=== PATIENT | female | born 1930 | race Caucasian/White ===

== ENCOUNTER → 2016-11-04 | Outpatient (CLI) | payer MEDICARE, BC | LOC: SP 15:09 | PROVIDERS: ATTEND Family Medicine | DX: R60.9 Edema, unspecified (principal) | CPT/HCPCS: 93970 ==

== ENCOUNTER → 2016-11-19 | Outpatient (CLI) | payer MEDICARE, BC | LOC: LAB 10:37 | PROVIDERS: ATTEND Physician Assistant Medical | DX: I48.0 Paroxysmal atrial fibrillation (principal) | CPT/HCPCS: 36415; 85610 ==

== ENCOUNTER → 2016-11-26 | Outpatient (CLI) | payer MEDICARE, BC ==
[2016-11-26 09:53] LABS: PROTHROMBIN TIME 17.5 SEC (11.4-15.4)
== END ==
LOC: LAB 08:50
PROVIDERS: ATTEND Physician Assistant Medical
DX: I48.0 Paroxysmal atrial fibrillation (principal)
CPT/HCPCS: 36415; 85610

== ENCOUNTER → 2017-06-10 | Outpatient (CLI) | payer MEDICARE, BC ==
--- NOTE | 2017-06-10 12:42 | WOMENS IMAGING REPORT ---
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 TECHNIQUE: Dual-Energy X-ray Absorptiometry (DEXA) of the AP Spine and Hip. LIMITATIONS: None. FINDINGS: LUMBAR SPINE: The bone mineral density (BMD) measured from L1-L4 in the AP projection correlates with a T-score of -1.5, which is osteopenia as defined by the World Health Organization. HIP: The bone mineral density (BMD) measured in the left hip correlates with a T-score of -2.1 femoral nec k, which is osteopenia as defined by the World Health Organization. IMPRESSION: 1. LUMBAR SPINE: OSTEOPENIA. 2. HIP: OSTEOPENIA. COMMENT: The World Health Organization defines low BMD as follows: T-score: Normal: Greater than -1.0 Osteopenia: Between -1.0 and -2.5 Osteoporosis: Less than -2.5 without fractures Established osteoporosis: Less than -2.5 with fractures In general, you may wish to consider: Diagnosis Treatment Follow-up DEXA Normal BMD Prevention 2-3 years Osteopenia Prevention/Therapy 1-2 years Osteoporosis Therapy Yearly TECHNICAL DOCUMENTATION: JOB ID: [id number] [employer]- All Rights Reserved
== END ==
LOC: WI 09:49
PROVIDERS: ATTEND Family Medicine
DX: M81.0 Age-related osteoporosis without current pathological fracture (principal)
CPT/HCPCS: 77080

== ENCOUNTER → 2017-11-18 | Outpatient (CLI) | payer MEDICARE, BC ==
[2017-11-18 13:14] LABS: INTERNATIONAL RATION (INR) 1.49; PROTHROMBIN TIME 18.8 SEC (11.4-15.4)
== END ==
LOC: OD 12:26
PROVIDERS: ATTEND Physician Assistant Medical
DX: I48.0 Paroxysmal atrial fibrillation (principal)
CPT/HCPCS: 36415; 85610

== ENCOUNTER → 2018-07-18 | Outpatient (CLI) | payer MEDICARE, BC ==
--- NOTE | 2018-07-19 08:10 | XCELERA REPORT ---
[address] [address] Lower Extremity Arterial Evaluation Name: SHEILA TOWNSEND Age: 87 yrs Gender: Female : 1930 Patient Status: Outpatient Patient Location: Study Date: 07/18/2018 09:20 AM Procedure: A color flow and duplex scan of the lower extremity arteries was performed on the right with velocity and waveform anaylsis. Reason For Study: RLE PAIN Ordering Physician: АННА WORLEY Performed By: Francisco Javier Terrell Measurements and Calculations Right Left NATUROPATH PSV 110.0 cm/sec Prox PFA PSV -59.7 cm/sec Prox SFA PSV 88.6 cm/sec Mid SFA PSV -101.3 cm/sec Dist SFA PSV -95.0 cm/sec Prox Pop A PSV 72.2 cm/sec Dist ISAMAR PSV 72.2 cm/sec Mid SOUND RANGING CREWMEMBER PSV 98.7 cm/sec Eliot Pedis PSV -93.7 90.4 cm/sec Right Side Arterial Evaluation Normal velocity and triphasic waveforms noted from the Common Femoral artery to the infrageniculate vessels . Ankle Brachial index not obtained due to edema. Interpretation Summary No hemodynamically significant lesions in the right lower extremity only, on duplex imaging, at rest. : АННА WORLEY > Corby Qureshi
== END ==
LOC: SP 08:50
PROVIDERS: ATTEND Family Medicine
DX: M79.604 Pain in right leg (principal)
CPT/HCPCS: 93926

== ENCOUNTER 2018-07-26 08:27 | Day surgery (SDC) | payer MEDICARE, BC ==
[2018-07-19 09:37] LABS: HEMATOCRIT 36.9 % (36.0-47.0); HEMOGLOBIN 12.2 g/dL (12.0-15.5); MEAN CORPUSCULAR VOLUME 88 fl (80-97); PLATELET COUNT 232 10^3/uL (150-450); WHITE BLOOD COUNT 6.2 10^3/uL (4.0-10.5)
[2018-07-19 09:46] LABS: INTERNATIONAL RATION (INR) 1.46; PARTIAL THROMBOPLASTIN TIME 32.6 SEC (23.5-35.8); PROTHROMBIN TIME 18.5 SEC (11.4-15.4)
[2018-07-19 10:05] LABS: BLOOD UREA NITROGEN 19 mg/dL (7-20); CALCIUM 9.6 mg/dL (8.4-10.2); CARBON DIOXIDE 36 mmol/L (22-30); CHLORIDE 99 mmol/L (98-107); GLUCOSE 113 mg/dL (75-110); POTASSIUM 4.2 mmol/L (3.6-5.0); SODIUM 139.4 mmol/L (137-145)
[2018-07-19 10:21] LABS: ANION GAP 4 (5-19)
--- NOTE | 2018-07-19 17:58 | EKG REPORT ---
SEVERITY:- ABNORMAL ECG - ATRIAL FIBRILLATION, V-RATE 67-96 ANTERIOR INFARCT, AGE INDETERMINATE : Confirmed by: Marly Reyna 19-Jul-2018 17:58:21
[~2018-07-26 08:27] MED LIST: CEFAZOLIN 1 GM/D5W RTU 1 GM/50 ML RTUPB IV ONE; CEFAZOLIN 1 GM/D5W RTU 1 GM/50 ML RTUPB IV PRN; LACTATED RINGERS 1000 ML IV PRN; LIDOCAINE 0.5% INJ-PF (5 MG/ML) 50 ML SDV SUBCUT PRN
[2018-07-26] MEDS ORDERED: MIDAZOLAM 2 MG/2 ML INJ ONE (08:57)
[2018-07-26] MEDS ORDERED: FENTANYL CITRATE INJ/PF 100 MCG/2 ML AMPUL ONE ×2 (08:57→12:32)
[2018-07-26] MEDS ORDERED: PROPOFOL INJ 200 MG/20 ML VIAL IV ONE (08:58)
[2018-07-26] MEDS ORDERED: ACETAMINOPHEN 1,000 MG/100 ML RTUPB IV ONE (08:58)
[2018-07-26] MEDS ORDERED: LIDOCAINE 1%/EPINEPHRINE INJ 20 ML VIAL ONE (09:52)
[2018-07-26 09:57] LABS: INTERNATIONAL RATION (INR) 1.04; PROTHROMBIN TIME 14.2 SEC (11.4-15.4)
[2018-07-26 09:58] LABS: PARTIAL THROMBOPLASTIN TIME 30.1 SEC (23.5-35.8)
[2018-07-26] MEDS ORDERED: DIPHENHYDRAMINE HCL 50 MG/ML VIAL IV PRN (11:18)
[2018-07-26] MEDS ORDERED: MEPERIDINE HCL/PF INJ 25 MG/1 ML DISP.SYRIN IV PRN (11:18)
[2018-07-26] MEDS ORDERED: FENTANYL CITRATE INJ/PF 100 MCG/2 ML AMPUL IV PRN ×2 (11:18)
[2018-07-26] MEDS ORDERED: PROMETHAZINE HCL INJ 25 MG/1 ML VIAL IV PRN (11:18)
[2018-07-26] MEDS ORDERED: MORPHINE SULFATE 10 MG/ML INJ IV PRN (11:18)
[2018-07-26] MEDS ORDERED: OXYCODONE-ACETAMINOPHEN 5-325 MG TABLET PO PRN (12:15)
--- NOTE | 2018-07-26 12:15 | Discharge Summary ---
Discharge Summary (SDC) - Discharge Final Diagnosis: Sebaceous cyst of right buttock Date of Surgery: 07/26/18 Discharge Date: 07/26/18 Condition: Good Treatment or Instructions: WOUND CARE: 1) Avoid prolonged sitting. Do not shower for 48 hours. Remove outer dressing in 48 hours but leave steri strips (paper bandaids) in place until follow up. Once outer dressing is removed you may shower with warm water and soap, pat dry and re cover. Change dressing every three days. 2) Monitor wound for signs of infection: redness, swelling, increased pain, foul-smelling drainage. PAIN MANAGEMENT: 1) You may take Toradol 10mg one pill by mouth every six hours as needed for pain. FOLLOW UP: 1) You may follow up at [facility] in 7-10 days. Call clinic sooner with questions/concerns. Prescriptions: Ketorolac Tromethamine [Toradol 10 mg Tablet] 10 mg PO Q6HP PRN #20 tablet PRN Reason: Referrals: АННА WORLEY MD [Primary Care Provider] - Discharge Diet: As Tolerated Discharge Activity: No Lifting Over 10 Pounds, No Lifting/Push/Pulling, Walk Frequently Report the Following to Your Physician Immediately: Increase in Pain, Fever over 101 Degrees, Unusual Bleeding, Redness, Increased Soreness, Drainage-Foul Smelling
--- NOTE | 2018-07-26 12:18 | Operative Report ---
Operative Report DATE OF SURGERY: 07/26/18 PREOPERATIVE DIAGNOSIS: Large right buttock mass consistent with lipoma POSTOPERATIVE DIAGNOSIS: Pain with multiloculated, chronic sebaceous cyst of the right buttock OPERATION: Complete excision of right multiloculated sebaceous cyst, with drain closure SURGEON: DANIEL ACHARYA TIP CUTTER: HELDER PENA ANESTHESIA: LMAC TISSUE REMOVED OR ALTERED: Skin, subcutaneous tissue, sebaceous cyst, scar tissue COMPLICATIONS: None ESTIMATED BLOOD LOSS: 25 cc INTRAOPERATIVE FINDINGS: See below PROCEDURE: The patient was taken to the preop holding area after marking the right buttock to the main operating room where LMAC anesthesia was induced. She was placed in extreme left lateral decubitus position right buttock exposed, perineum clean, and isolated from the target tissue with iodoform dressing. The right buttock was then prepped and draped with Betadine Surgical plan surgical timeout were conducted. Skin was anesthetized with quarter percent Marcaine including subcutaneous tissues. A generous ellipse approximately 8 cm in length was then excised overlying the bruised portion of the greatest protrusion of tissue. The underlying pathology turned out to be a complex, chronic multiloculated sebaceous cyst. There was no evidence of pus, tumor, or bleeding. The entire cyst which was hard in areas was excised from the skin flaps, and the subcutaneous tissue. Inferiorly the complex extended to involve fibers of the gluteus idalia muscle. Vascular events were ligated as encountered with 2-0 Vicryl suture. The superficial gluteus muscle was excised with electrocautery. All elements of the cyst cavity were excised. Specimens were sent to pathology. We now evaluated the cavity. It was irrigated with a liter of saline. Redundant operative skin edges were excised with #10 blade. Wound closed in layers with 3-0 Vicryl 4-0 Vicryl 4-0 Ethilon interrupted sutures, benzoin and Steri-Strips. Prior to closure, a large Eric drain was placed to the right lateral skin flap secured to the skin with 2-0 Prolene suture and hooked to a bulb dressing. Patient tolerated the procedure well, stable and brought to the recovery room in stable condition.
[2018-07-26] MEDS ORDERED: OXYCODONE-ACETAMINOPHEN 5-325 MG TABLET ONE (13:37)
[2018-07-26 15:09] VITALS: BP 125/73
== END 2018-07-26 14:35 | disposition home or self-care (01) ==
LOC: OROUT 08:27
PROVIDERS: ATTEND Surgery
DX: D17.1 Benign lipomatous neoplasm of skin and subcutaneous tissue of trunk (principal); Z79.01 Long term (current) use of anticoagulants; M81.0 Age-related osteoporosis without current pathological fracture; I48.91 Unspecified atrial fibrillation; I10 Essential (primary) hypertension; F03.90 Unspecified dementia, unspecified severity, without behavioral disturbance, psychotic disturbance, mood disturbance, and anxiety; I25.10 Atherosclerotic heart disease of native coronary artery without angina pectoris; M19.90 Unspecified osteoarthritis, unspecified site; I49.9 Cardiac arrhythmia, unspecified; Z79.899 Other long term (current) drug therapy
CPT/HCPCS: 93005; 36415 ×2; 84132; 85027; 85610 ×2; 85730 ×2; 80048; 88304 ×2; 93010; 21931; J0690; J3010; J3490; A9270; J2704; J0131; 300; J2250

== ENCOUNTER → 2018-08-11 | Outpatient (CLI) | payer MEDICARE, BC ==
--- NOTE | 2018-08-12 09:13 | RADIOLOGY REPORT (SQ) ---
EXAM DESCRIPTION: TIBIA FIBULA RIGHT COMPLETED DATE/TIME: 08/11/2018 5:07 pm REASON FOR STUDY: NON PRESSURE CHRONIC ULCER RIGHT CALF COMPARISON: None. NUMBER OF VIEWS: Two views right tibia and fibula, 4 images total. LIMITATIONS: None. FINDINGS: Osteopenic. Medial compartment knee DJD. No fracture or bone lesion. Soft tissue loss a long the medial distal calf. No underlying suspicious foreign body or bone destruction. OTHER: No other significant finding. IMPRESSION: No radiographic evidence of osteomyelitis. Osteopenia. B DJD. TECHNICAL DOCUMENTATION: JOB ID: [id number] Reading location - IP/workstation name: [email or web address]
== END ==
LOC: RAD 16:49
PROVIDERS: ATTEND Nurse Practitioner
DX: L97.222 Non-pressure chronic ulcer of left calf with fat layer exposed (principal); L97.212 Non-pressure chronic ulcer of right calf with fat layer exposed

== ENCOUNTER → 2018-08-24 | Outpatient (CLI) | payer MEDICARE, BC ==
[2018-08-24 11:04] LABS: ABSOLUTE LYMPHOCYTES (AUTO) 1.3 10^3/uL (0.5-4.7); ABSOLUTE MONOCYTES (AUTO) 0.5 10^3/uL (0.1-1.4); ABSOLUTE NEUT (AUTO) 4.9 10^3/uL (1.7-8.2); BASOPHILS % (AUTO) 0.6 % (0-2); EOSINOPHILS % (AUTO) 0.6 % (0-6); HEMATOCRIT 36.5 % (36.0-47.0); HEMOGLOBIN 11.9 g/dL (12.0-15.5); LYMPHOCYTES % (AUTO) 19.3 % (13-45); MEAN CORPUSCULAR HEMOGLOBIN 28.4 pg (27.0-33.4); MEAN CORPUSCULAR HGB CONC 32.7 g/dL (32.0-36.0); MEAN CORPUSCULAR VOLUME 87 fl (80-97); MONOCYTES % (AUTO) 7.7 % (3-13); PLATELET COUNT 272 10^3/uL (150-450); RED CELL DISTRIBUTION WIDTH 14.9 % (11.5-14.0); SEGMENTED NEUTROPHILS % (AUTO) 71.8 % (42-78); TOTAL CELLS COUNTED % (AUTO) 100 %; WHITE BLOOD COUNT 6.9 10^3/uL (4.0-10.5)
[2018-08-24 11:30] LABS: ALANINE AMINOTRANSFERASE 26 U/L (9-52); ALBUMIN 3.6 g/dL (3.5-5.0); ALKALINE PHOSPHATASE 80 U/L (38-126); ANION GAP 6 (5-19); ASPARTATE AMINO TRANSFERASE 23 U/L (14-36); BILIRUBIN,DIRECT 0.1 mg/dL (0.0-0.4); BILIRUBIN,TOTAL 0.9 mg/dL (0.2-1.3); BLOOD UREA NITROGEN 13 mg/dL (7-20); C-REACTIVE PROTEIN 6.6 mg/L (<10.0); CALCIUM 9.9 mg/dL (8.4-10.2); CARBON DIOXIDE 37 mmol/L (22-30); CHLORIDE 95 mmol/L (98-107); GLUCOSE 88 mg/dL (75-110); POTASSIUM 4.7 mmol/L (3.6-5.0); SODIUM 137.6 mmol/L (137-145); TOTAL PROTEIN 5.9 g/dL (6.3-8.2)
[2018-08-24 11:49] LABS: ERYTHROCYTE SEDIMENTATION RATE 16 mm/hr (0-30)
== END ==
LOC: WC 10:19
PROVIDERS: ATTEND Nurse Practitioner Family
DX: L97.222 Non-pressure chronic ulcer of left calf with fat layer exposed (principal)
CPT/HCPCS: 36415; 80053; 85025; 85652; 86140

== ENCOUNTER 2018-11-15 07:00 | Observation (INO) | payer MEDICARE, BC ==
[~2018-11-15 07:00] MED LIST changes: -CEFAZOLIN 1 GM/D5W RTU 1 GM/50 ML RTUPB IV PRN; -LACTATED RINGERS 1000 ML IV PRN; -LIDOCAINE 0.5% INJ-PF (5 MG/ML) 50 ML SDV SUBCUT PRN
[2018-11-15] MEDS ORDERED: HYDROMORPHONE HCL INJ/PF 2 MG/ML AMPULE ONE (07:06)
[2018-11-15] MEDS ORDERED: FENTANYL CITRATE INJ/PF 100 MCG/2 ML AMPUL ONE (07:07)
[2018-11-15] MEDS ORDERED: MIDAZOLAM 2 MG/2 ML INJ ONE (07:07)
[2018-11-15] MEDS ORDERED: PROPOFOL INJ 200 MG/20 ML VIAL IV ONE (07:07)
[2018-11-15] MEDS ORDERED: RINGERS SOLUTION,LACTATED 1,000 ML IV PRN (07:52)
[2018-11-15 08:12] LABS: HEMATOCRIT 36.7 % (36.0-47.0); MEAN CORPUSCULAR HEMOGLOBIN 28.5 pg (27.0-33.4); MEAN CORPUSCULAR HGB CONC 32.8 g/dL (32.0-36.0); MEAN CORPUSCULAR VOLUME 87 fl (80-97); PLATELET COUNT 202 10^3/uL (150-450); RED BLOOD COUNT 4.23 10^6/uL (3.72-5.28); RED CELL DISTRIBUTION WIDTH 15.4 % (11.5-14.0)
[2018-11-15 08:20] LABS: INTERNATIONAL RATION (INR) 1.24; PROTHROMBIN TIME 16.2 SEC (11.4-15.4)
[2018-11-15 08:21] LABS: PARTIAL THROMBOPLASTIN TIME 33.1 SEC (23.5-35.8)
--- NOTE | 2018-11-15 08:41 | RADIOLOGY REPORT (SQ) ---
EXAM DESCRIPTION: CHEST SINGLE VIEW COMPLETED DATE/TIME: 11/15/2018 7:54 am REASON FOR STUDY: preop COMPARISON: None. EXAM PARAMETERS: NUMBER OF VIEWS: One view. TECHNIQUE: Single frontal radiographic view of the chest acquired. RADIATION DOSE: NA LIMITATIONS: None. FINDINGS: LUNGS AND PLEURA: Emphysematous change. Low lung volumes with mild left lateral opacities at the lung base. No large effusion. No pneumothorax. MEDIASTINUM AND HILAR STRUCTURES: No masses. Contour normal. HEART AND VASCULAR STRUCTURES: Normal heart size. Aortic atherosclerosis. BONES: No acute findings. HARDWARE: None in the chest. OTHER: No other significant finding. IMPRESSION: Low lung volumes with linear left basilar opacities, likely atelectasis. TECHNICAL DOCUMENTATION: JOB ID: [id number] [employer]- All Rights Reserved Reading location - IP/workstation name: [email or web address]
[2018-11-15] MEDS ORDERED: BUPIVACAINE HCL 0.25 % INJ/PF (2.5 MG/1 ML) 30 ML VIAL ONE (08:55)
[2018-11-15] MEDS ORDERED: LIDOCAINE 0.5% INJ-PF (5 MG/ML) 50 ML SDV ONE (08:55)
[2018-11-15] MEDS ORDERED: ONDANSETRON HCL INJ/PF 4 MG/2 ML SDV ONE (09:33)
[2018-11-15] MEDS ORDERED: DEXAMETHASONE SOD PHOSPHATE INJ 4 MG/1 ML VIAL ONE (09:33)
[2018-11-15] MEDS ORDERED: DIPHENHYDRAMINE HCL 50 MG/ML VIAL IV PRN (09:41)
[2018-11-15] MEDS ORDERED: OXYCODONE-ACETAMINOPHEN 5-325 MG TABLET PO PRN (09:41)
[2018-11-15] MEDS ORDERED: FENTANYL CITRATE INJ/PF 100 MCG/2 ML AMPUL IV PRN ×3 (09:41)
[2018-11-15] MEDS ORDERED: MEPERIDINE HCL/PF INJ 25 MG/1 ML DISP.SYRIN IV PRN (09:41)
--- NOTE | 2018-11-15 10:08 | Operative Report ---
Operative Report DATE OF SURGERY: 11/15/18 PREOPERATIVE DIAGNOSIS: Recurrent buttock abscess POSTOPERATIVE DIAGNOSIS: Same OPERATION: Wide excision of skin, subcutaneous tissue, fascia, and portions of right gluteus idalia muscle with #10 blade SURGEON: DANIEL HADDAD 1ST ROLLER STAKER: HELDER PENA ANESTHESIA: LMAC TISSUE REMOVED OR ALTERED: Skin, subcutaneous tissue, granulation tissue, fascia and muscle COMPLICATIONS: None ESTIMATED BLOOD LOSS: 75 cc INTRAOPERATIVE FINDINGS: See below PROCEDURE: The patient was taken to the preop holding her to the main operating room where LMAC anesthesia was induced. She was placed in the extreme left lateral cubitus position. Right buttock was exposed, prepped and draped in sterile fashion. Surgical plan and surgical timeout were conducted. The skin around the chronic abscess cavity was anesthetized with approximately 35 cc of quarter percent Marcaine. The findings were significant for an exophytic, open ulcerated chronic granulating abscess cavity. The opening was approximately 5 cm there is. We excised the existing epithelial border of this abscess cavity, and the underlying central cavity itself using a #10 blade. This mass was approximately 6 x 7 x 3 cm. We now used multiple #10 blades, and excised multiple chunks of granulation tissue and fibrotic tissue in a circumferential fashion, eventually exposing the fascia and superficial layers of muscle of the right gluteus idalia. After ext ensively debriding this cavity, we now had a hole, with the opening approximately 6 cm in diameter by 6 cm, with the underlying cavity 12 cm in diameter and approximately 4 cm deep. It was cleaned [id number]. There was no clinical evidence of cellulitis. All inflammatory tissue was excised sharply. We now irrigated the wound several times with saline approximately 1 L, cauterized and even oversewed a few muscular bleeders, then packed the wound with moist saline Kerlix. The patient tolerated procedure well, placed back in the supine position and then taken to the recovery room in stable condition. She will be managed with the wound VAC in the next 24 to 48 hours pending stability of the wound.,
[2018-11-15] MEDS: OXYCODONE-ACETAMINOPHEN 5-325 MG TABLET PO PRN (13:03)
[2018-11-15] MEDS ORDERED: THROMBIN (BOVINE) TOPICAL 5000 UNIT VIAL ONE (13:38)
--- NOTE | 2018-11-15 14:11 | Operative Report ---
Nonrecallable Operative Report DATE OF SURGERY: 11/15/18 PREOPERATIVE DIAGNOSIS: Postoperative bleeding status post wide excisional debridement right buttock POSTOPERATIVE DIAGNOSIS: Same OPERATION: Bedside removal of clot, oversewing of small arterial bleeder, and application of thrombin and Surgicel to right buttock wound SURGEON: DANIEL DUMONT 1ST AQUACULTURAL WORKER SUPERVISOR: HELDER PENA ANESTHESIA: Other - None TISSUE REMOVED OR ALTERED: Clot COMPLICATIONS: None ESTIMATED BLOOD LOSS: 150 cc blood loss INTRAOPERATIVE FINDINGS: See below PROCEDURE: The patient had early undergone a wide chronic wound right buttock. She tolerated the procedure well, recovered uneventfully was taken to the floor. On the second floor over the previous 2 hours she had ongoing bleeding the right buttock wound. This was reported to the surgeon. At approximately 1:30 PM, Dr. Dumont came to bedside and noted significant bleeding and clot from the operative wound We had the patient rolled in the left lateral decubitus position. Dressings and packing from the previous excavation site removed. Wound irrigated, and clot removed. There was an arterial bleeder in the muscle on the lateral side of the floor open wound and this was oversewed with a 3-0 Vicryl suture. There ap peared to be no other active bleeders. We remove the majority of the clot, however patient did not tolerate this well as we were unable to provide any meaningful anesthesia. Fortunately, over the short period of time, she tolerated the washout and control of bleeding very well. In the recesses of the wound we placed thrombin which was activated at bedside, and a large 4 x 8 inch piece of Surgicel, then to moist normal saline gauzes were packed into the wound cavity. We then covered this with a three 4 x 4's MediPort tape. Patient was placed in the supine position. She tolerated this quite well. We will check a CBC in the morning.
--- NOTE | 2018-11-15 14:36 | EKG REPORT ---
SEVERITY:- ABNORMAL ECG - ATRIAL FIBRILLATION, V-RATE 58-91 LOW VOLTAGE IN FRONTAL LEADS BORDERLINE R WAVE PROGRESSION, ANTERIOR LEADS NONSPECIFIC T ABNORMALITIES, LATERAL LEADS : Confirmed by: Robert Mas MD 15-Nov-2018 14:35:43
[2018-11-15] MEDS ORDERED: (PENDING PHARMACY ID) (Calcium Carbonate [Calcium] 600 MG) PO SCH (18:00)
[2018-11-15] MEDS: DOCUSATE SODIUM 100 MG CAPSULE PO SCH (18:44)
[2018-11-15] MEDS: CALCIUM CARBONATE 500 MG TAB.CHEW PO SCH (18:44)
[2018-11-15] MEDS: ATORVASTATIN CALCIUM 20 MG TABLET PO SCH (22:12)
[2018-11-15] MEDS ORDERED: CEFAZOLIN 1 GM/D5W RTU 1 GM/50 ML RTUPB IV ONE (22:30)
[2018-11-16] MEDS: OXYCODONE-ACETAMINOPHEN 5-325 MG TABLET PO PRN (02:16)
[2018-11-16] MEDS: CEFAZOLIN 1 GM/D5W RTU 1 GM/50 ML RTUPB IV SCH ×3 (05:28→22:57)
[2018-11-16 06:14] LABS: ABSOLUTE LYMPHOCYTES (AUTO) 1.1 10^3/uL (0.5-4.7); ABSOLUTE MONOCYTES (AUTO) 0.9 10^3/uL (0.1-1.4); ABSOLUTE NEUT (AUTO) 6.1 10^3/uL (1.7-8.2); BASOPHILS % (AUTO) 0.2 % (0-2); EOSINOPHILS % (AUTO) 0.5 % (0-6); HEMATOCRIT 29.9 % (36.0-47.0); LYMPHOCYTES % (AUTO) 13.9 % (13-45); MEAN CORPUSCULAR HEMOGLOBIN 28.9 pg (27.0-33.4); MEAN CORPUSCULAR HGB CONC 33.3 g/dL (32.0-36.0); MEAN CORPUSCULAR VOLUME 87 fl (80-97); MONOCYTES % (AUTO) 11.2 % (3-13); PLATELET COUNT 190 10^3/uL (150-450); RED BLOOD COUNT 3.44 10^6/uL (3.72-5.28); RED CELL DISTRIBUTION WIDTH 15.1 % (11.5-14.0); SEGMENTED NEUTROPHILS % (AUTO) 74.2 % (42-78); TOTAL CELLS COUNTED % (AUTO) 100 %; WHITE BLOOD COUNT 8.2 10^3/uL (4.0-10.5)
[2018-11-16] MEDS ORDERED: FUROSEMIDE 20 MG TABLET PO SCH (08:00)
[2018-11-16] MEDS: CYANOCOBALAMIN (VITAMIN B-12) 1,000 MCG TABLET PO SCH (09:59)
[2018-11-16] MEDS: DOCUSATE SODIUM 100 MG CAPSULE PO SCH ×2 (10:00→17:36)
[2018-11-16] MEDS: CALCIUM CARBONATE 500 MG TAB.CHEW PO SCH ×2 (10:00→17:36)
[2018-11-16] MEDS: CARVEDILOL 6.25 MG TABLET PO SCH ×3 (10:01→22:56)
--- NOTE | 2018-11-16 12:57 | PDOC PROGRESS REPORT ---
Subjective Subjective:: Patient doing well overnight, no further bleeding, voiding, getting out of bed, tolerating a diet. No bowel movement. Pain managed. Had some decreased saturations, but got placed on 1 L of oxygen. Patient has no shortness of breath. Reason For Visit: RIGHT BUTTOCK ABSCESS Physical Exam Vital Signs: Temp Pulse Resp BP Pulse Ox 97.5 F 88 18 107/51 L 99 11/16/18 11:38 11/16/18 11:38 11/16/18 11:38 11/16/18 11:38 11/16/18 11:38 Intake & Output 11/15/18 11/16/18 11/17/18 06:59 06:59 06:59 Intake Total 2190 1000 Output Total 1305 Balance 885 1000 Weight 49.9 kg 49.9 kg General appearance: PRESENT: no acute distress, other - Patient looks good color improved. Additional comments: Patient rolled in the left lateral decubitus position. Dressing removed, packing removed down to surgery cell covering right gluteus idalia muscle. No active bleeding. No foul smell. One moist normal saline 4 x 4 replaced into wound cavity. Dry dressings applied. Results Laboratory Results: 11/16/18 05:48 11/15/18 07:43 11/16/18 05:48 WBC 8.2 RBC 3.44 L Hgb 10.0 L Hct 29.9 L MCV 87 MCH 28.9 MCHC 33.3 RDW 15.1 H Plt Count 190 Seg Neutrophils % 74.2 Lymphocytes % 13.9 Monocytes % 11.2 Eosinophils % 0.5 Basophils % 0.2 Absolute Neutrophils 6.1 Absolute Lymphocytes 1.1 Absolute Monocytes 0.9 Absolute Eosinophils 0.0 Absolute Basophils 0.0 11/15/18 09:30 Buttocks - Right Gram Stain - Final Impressions: Chest X-Ray 11/15/18 00:00 IMPRESSION: Low lung volumes with linear left basilar opacities, likely atelectasis. Assessment & Plan - Diagnosis (1) Wound of right buttock Is this a current diagnosis for this admission?: Yes Plan: Impression: Status post incisional debridement yesterday in the operating room under LMAC anesthesia; postoperative bleeding controlled with stitch at bedside 3 hours later. Hemoglobin dropped 2 g. Patient hemodynamically stable. Pathology report just posted. 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 Discussion recommendations 1. At time of my visit with the patient this morning, the pathology report was not back yet. This will be discussed with her and her family later today. The operative debridement was rather vigorous in terms of amount of tissue removed, including portions of the gluteus idalia muscle. Wound is now packed open in a limited fashion, with no active bleeding. 2. We will need to make a decision about the resumption of Coumadin; we will check patient's her primary care provider or have the hospitalist consult 3. We will discuss management strategies with patient and family; I do not think that aggressive operative re-excision is indicated at this moment. (2) Atrial fibrillation Is this a current diagnosis for this admission?: Yes
--- NOTE | 2018-11-16 15:03 | RADIOLOGY REPORT (SQ) ---
EXAM DESCRIPTION: CHEST 2 VIEWS COMPLETED DATE/TIME: 11/16/2018 2:43 pm REASON FOR STUDY: O2 stat low COMPARISON: 11/15/2018 EXAM PARAMETERS: NUMBER OF VIEWS: two views TECHNIQUE: Digital Frontal and Lateral radiographic views of the chest acquired. RADIATION DOSE: NA LIMITATIONS: none FINDINGS: LUNGS AND PLEURA: Since prior study the patient has developed bilateral pleural effusions. There is bibasilar airspace disease left greater than right this could represent atelectasis or pne umonia. Lung friedman are hyperexpanded consistent with COPD. MEDIASTINUM AND HILAR STRUCTURES: No masses or contour abnormalities. HEART AND VASCULAR STRUCTURES: Heart normal size. No evidence for failure. BONES: No acute findings. HARDWARE: None in the chest. OTHER: No other significant finding. IMPRESSION: COPD with bibasilar effusions and basilar airspace disease either atelectasis or pneumon ia. Left greater than right. This has developed since prior study. TECHNICAL DOCUMENTATION: JOB ID: [id number] [employer]- All Rights Reserved Reading location - IP/workstation name: [email or web address]
[2018-11-16 15:55] LABS: INTERNATIONAL RATION (INR) 1.13; PROTHROMBIN TIME 15.1 SEC (11.4-15.4)
[2018-11-16 16:07] LABS: BLOOD UREA NITROGEN 15 mg/dL (7-20); CALCIUM 9.7 mg/dL (8.4-10.2); GLUCOSE 93 mg/dL (75-110)
[2018-11-16 16:17] LABS: CARBON DIOXIDE 35 mmol/L (22-30); CHLORIDE 97 mmol/L (98-107); POTASSIUM 4.5 mmol/L (3.6-5.0); SODIUM 136.4 mmol/L (137-145)
[2018-11-16 16:20] LABS: ANION GAP 4 (5-19)
[2018-11-16] MEDS: FUROSEMIDE 20 MG TABLET PO SCH (18:36)
--- NOTE | 2018-11-16 18:38 | PDOC PROGRESS REPORT ---
Subjective Progress Note for:: 11/16/18 Subjective:: Patient well-known to me from outpatient setting. She was admitted for surgery in the buttock area. She has history of chronic atrial fibrillation. Patient has chronic pedal edema. Patient denies any symptoms of shortness of breath. She was noted to have elevated BNP level. I been asked to evaluate patient. Reason For Visit: RIGHT BUTTOCK ABSCESS Physical Exam Vital Signs: Temp Pulse Resp BP Pulse Ox 97.8 F 91 22 H 113/58 L 98 11/16/18 16:07 11/16/18 16:07 11/16/18 16:07 11/16/18 16:07 11/16/18 16:07 Intake & Output 11/15/18 11/16/18 11/17/18 06:59 06:59 06:59 Intake Total 2190 2050 Output Total 1305 600 Balance 885 1450 Weight 49.9 kg 49.9 kg General appearance: PRESENT: no acute distress, cooperative, disheveled, hard of hearing, mild distress, morbidly obese, obese, severe distress, thin, well- developed, well-nourished, other Head exam: PRESENT: atraumatic, normocephalic Eye exam: PRESENT: conjunctiva pink, EOMI, PERRLA. ABSENT: scleral icterus Ear exam: PRESENT: normal external ear exam Mouth exam: PRESENT: moist, tongue midline Neck exam: ABSENT: carotid bruit, JVD, lymphadenopathy, thyromegaly Respiratory exam: PRESENT: clear to auscultation jin. ABSENT: rales, rhonchi, wheezes Cardiovascular exam: PRESENT: RRR. ABSENT: diastolic murmur, rubs, systolic murmur Pulses: PRESENT: normal dorsalis pedis pul Vascular exam: PRESENT: normal capillary refill GI/Abdominal exam: PRESENT: normal bowel sounds, soft. ABSENT: distended, guarding, mass, organolmegaly, rebound, tenderness Rectal exam: PRESENT: deferred Extremities exam: PRESENT: full ROM, +2 edema. ABSENT: calf tenderness, clubbing, pedal edema Neurological exam: PRESENT: alert, awake, oriented to person, oriented to place, oriented to time, oriented to situation, CN II-XII grossly intact. ABSENT: motor sensory deficit Psychiatric exam: PRESENT: appropriate affect, normal mood. ABSENT: homicidal ideation, suicidal ideation Skin exam: PRESENT: dry, intact, warm. ABSENT: cyanosis, rash Results Laboratory Results: 11/16/18 05:48 11/16/18 15:29 11/16/18 11/16/18 05:48 15:29 WBC 8.2 RBC 3.44 L Hgb 10.0 L Hct 29.9 L MCV 87 MCH 28.9 MCHC 33.3 RDW 15.1 H Plt Count 190 Seg Neutrophils % 74.2 Lymphocytes % 13.9 Monocytes % 11.2 Eosinophils % 0.5 Basophils % 0.2 Absolute Neutrophils 6.1 Absolute Lymphocytes 1.1 Absolute Monocytes 0.9 Absolute Eosinophils 0.0 Absolute Basophils 0.0 Sodium 136.4 L Potassium 4.5 Chloride 97 L Carbon Dioxide 35 H Anion Gap 4 L BUN 15 Creatinine 0.74 Est GFR ( Amer) > 60 Est GFR (Non-Af Amer) > 60 Glucose 93 Calcium 9.7 11/15/18 09:30 Buttocks - Right Gram Stain - Final 11/16/18 15:29 NT-Pro-B Natriuret Pep 2360 H EKG Comments: Atrial fibrillation with controlled ventricular response. Impressions: Chest X-Ray 11/16/18 00:00 IMPRESSION: COPD with bibasilar effusions and basilar airspace disease either atelectasis or pneumonia. Left greater than right. This has developed since prior study. Assessment & Plan - Diagnosis (1) Atrial fibrillation Qualifiers: Atrial fibrillation type: chronic Qualified Code(s): I48.2 - Chronic atrial fibrillation Is this a current diagnosis for this admission?: Yes (2) Diastolic congestive heart failure Qualifiers: Heart failure chronicity: chronic Qualified Code(s): I50.32 - Chronic diastolic (congestive) heart failure Is this a current diagnosis for this admission?: Yes (3) Hyperlipidemia Qualifiers: Hyperlipidemia type: unspecified Qualified Code(s): E78.5 - Hyperlipidemia, unspecified Is this a current diagnosis for this admission?: Yes (4) Hypertension Qualifiers: Hypertension type: essential hypertension Qualified Code(s): I10 - Essential (primary) hypertension Is this a current diagnosis for this admission?: Yes (5) Wound of right buttock Is this a current diagnosis for this admission?: Yes - Notes Notes: Patient seems generally stable from cardiac standpoint except for some pedal edema. Patient pedal edema due to combination of right-sided CHF and also venous insufficiency. Patient had this chronically. At this point increase Lasix to 20 mg p.o. twice daily. Resume chronic Coumadin therapy. Patient can follow-up with me in the office. Discussed with Dr. Bear. - Time Time with patient: Greater than 35 minutes
--- NOTE | 2018-11-16 18:41 | PDOC CONSULTATION ---
Consultation Consult Date: 11/16/18 Attending physician:: DANILE HADDAD Provider Consulted: АННА WORLEY Consult reason:: Medical management History of Present Illness Admission Date/PCP: 11/15/18 10:21 АННА WORLEY MD Patient complains of: This is a 88-year-old female with a history of the hypertension hyperlipidemia chronic atrial fibrillation's on chronic Coumadin currently followed by cardiology Dr. Reyna for INR and chronic diastolic heart failure basically admitted by the surgical service for a right buttock wound for the debridement History of Present Illness: SHEILA TOWNSEND is a 88 year old female This is a 88-year-old female with a history of the hypertension's hyperlipidemia history of the chronic atrial fibrillation on chronic Coumadin it currently follow with the Dr. Reyna as outpatient also history of the chronic diastolic heart failure have ongoing right buttock wound admitted by the surgical service for the right wound debridement Postop patient has some bleeding complications was treated with the appropriate treatments Patient's pathology is come some invasive squamous cell carcinoma as per discussed with the surgery just continues to monitor Patient hemoglobin drop but did not require any transfusion at this point Patient is denied any chest pain to than any shortness of the breath Patient's denied any abdominal pain no nausea no vomiting Patient IV fluid was stopped by surgery today Currently on IV Lasix Patient is currently not actively bleeding Patient's recent echocardiogram per cardiology office with a EF is normal with mild diastolic dysfunctions Past Medical History Cardiac Medical History: Reports: Atrial Fibrillation, Congestive Heart Failure, Hyperlipidema, Hypertension Denies: Coronary Artery Disease, Myocardial Infarction Pulmonary Medical History: Denies: Asthma, Bronchitis, Chronic Obstructive Pulmonary Disease (COPD), Pneumonia Neurological Medical History: Denies: Seizures Musculoskeltal Medical History: Reports: Arthritis Hematology: Denies: Anemia Past Surgical History Past Surgical History: Reports: Other Social History Information Source: Patient Smoking Status: Never Smoker Frequency of Alcohol Use: None Hx Recreational Drug Use: No Hx Prescription Drug Abuse: No Family History Family History: Reviewed & Not Pertinent Parental Family History Reviewed: Yes Children Family History Reviewed: Yes Sibling(s) Family History Reviewed.: Yes Medication/Allergy Home Medications: Atorvastatin Calcium [Lipitor 20 mg Tablet] 20 mg PO QHS 07/19/18 Calcium Carbonate [Calcium] 600 mg PO BID 07/19/18 Furosemide [Lasix] 20 mg PO QAM 07/19/18 Ketorolac Tromethamine [Toradol 10 mg Tablet] 10 mg PO Q6HP PRN #20 tablet 07/26/18 Carvedilol [Coreg 6.25 mg Tablet] 6.25 mg PO Q12 11/15/18 Cyanocobalamin (Vitamin B-12) [Vitamin B-12 1000 Mcg Tablet] 1 tab PO DAILY 11/15/18 Metronidazole [Flagyl 500 mg Tablet] 500 mg PO TID 11/15/18 Multivitamin [Tab-A-Sandro (Multiple Vitamin) Tablet] 1 tab PO DAILY 11/15/18 Warfarin Sodium [Coumadin 2.5 mg Tablet] 2.5 mg PO MOTUWETH@1800 11/15/18 Warfarin Sodium [Coumadin 5 mg Tablet] 5 mg PO SUFRSA@1800 11/15/18 Allergies/Adverse Reactions: No Known Allergies Allergy (Verified 11/15/18 07:20) Review of Systems Constitutional: ABSENT: chills, fever(s), headache(s), weight gain, weight loss Eyes: ABSENT: visual disturbances Ears: ABSENT: hearing changes Cardiovascular: ABSENT: chest pain, dyspnea on exertion, edema, orthropnea, palpitations Respiratory: ABSENT: cough, hemoptysis Gastrointestinal: ABSENT: abdominal pain, constipation, diarrhea, hematemesis, hematochezia, nausea, vomiting Genitourinary: ABSENT: dysuria, hematuria Musculoskeletal: ABSENT: joint swelling Integumentary: ABSENT: rash, wounds Neurological: ABSENT: abnormal gait, abnormal speech, confusion, dizziness, focal weakness, syncope Psychiatric: ABSENT: anxiety, depression, homidical ideation, suicidal ideation Endocrine: ABSENT: cold intolerance, heat intolerance, menstrual abnormalities, polydipsia, polyuria Hematologic/Lymphatic: ABSENT: easy bleeding, easy bruising, lymphadenopathy Physical Exam Vital Signs: Temp Pulse Resp BP Pulse Ox 97.5 F 88 18 107/51 L 99 11/16/18 11:38 11/16/18 11:38 11/16/18 11:38 11/16/18 11:38 11/16/18 11:38 Intake & Output 11/15/18 11/16/18 11/17/18 06:59 06:59 06:59 Intake Total 2190 1000 Output Total 1305 Balance 885 1000 Weight 49.9 kg 49.9 kg General appearance: PRESENT: no acute distress, well-developed, well-nourished Head exam: PRESENT: atraumatic, normocephalic Eye exam: PRESENT: conjunctiva pink, EOMI, PERRLA. ABSENT: scleral icterus Ear exam: PRESENT: normal external ear exam Mouth exam: PRESENT: moist, tongue midline Neck exam: PRESENT: full ROM. ABSENT: carotid bruit, JVD, lymphadenopathy, thyromegaly Respiratory exam: PRESENT: clear to auscultation jin Cardiovascular exam: PRESENT: irregular rhythm. ABSENT: diastolic murmur, rubs, systolic murmur Vascular exam: PRESENT: normal capillary refill GI/Abdominal exam: PRESENT: normal bowel sounds, soft. ABSENT: distended, guarding, mass, organolmegaly, rebound, tenderness Additonal comments: Right buttock the wound dressing is present no active bleeding Rectal exam: PRESENT: deferred Extremities exam: PRESENT: pedal edema Neurological exam: PRESENT: alert, awake, oriented to person, oriented to place, oriented to time, oriented to situation, CN II-XII grossly intact. ABSENT: motor sensory deficit Psychiatric exam: PRESENT: appropriate affect, normal mood. ABSENT: homicidal ideation, suicidal ideation Skin exam: PRESENT: dry, intact, warm. ABSENT: cyanosis, rash Results Laboratory Results: 11/16/18 05:48 11/15/18 07:43 11/16/18 05:48 WBC 8.2 RBC 3.44 L Hgb 10.0 L Hct 29.9 L MCV 87 MCH 28.9 MCHC 33.3 RDW 15.1 H Plt Count 190 Seg Neutrophils % 74.2 Lymphocytes % 13.9 Monocytes % 11.2 Eosinophils % 0.5 Basophils % 0.2 Absolute Neutrophils 6.1 Absolute Lymphocytes 1.1 Absolute Monocytes 0.9 Absolute Eosinophils 0.0 Absolute Basophils 0.0 11/15/18 09:30 Buttocks - Right Gram Stain - Final Impressions: Chest X-Ray 11/15/18 00:00 IMPRESSION: Low lung volumes with linear left basilar opacities, likely atelectasis. Assessment & Plan - Diagnosis (1) Diastolic congestive heart failure Qualifiers: Heart failure chronicity: chronic Qualified Code(s): I50.32 - Chronic diastolic (congestive) heart failure Is this a current diagnosis for this admission?: Yes Plan: Continues to Lasix 20 mg p.o. daily we will check the proBNP and Chem-7 and a chest x-ray (2) Hypertension Qualifiers: Hypertension type: essential hypertension Qualified Code(s): I10 - Essential (primary) hypertension Is this a current diagnosis for this admission?: Yes Plan: Is currently on a lower end currently hold the Coreg but I believe patient's tomorrow we will start the Coreg again as per his patient is asymptomatic (3) Hyperlipidemia Qualifiers: Hyperlipidemia type: unspecified Qualified Code(s): E78.5 - Hyperlipidemia, unspecified Is this a current diagnosis for this admission?: Yes (4) Arthritis Is this a current diagnosis for this admission?: Yes (5) Atrial fibrillation Qualifiers: Atrial fibrillation type: chronic Qualified Code(s): I48.2 - Chronic atrial fibrillation Is this a current diagnosis for this admission?: Yes Plan: Continues to beta-nesha and restart the Coumadin from tomorrow if is okay with the surgery as per us no active bleeding (6) Wound of right buttock Is this a current diagnosis for this admission?: Yes Plan: Follow with the surgery - Time Time Spent: 30 to 50 Minutes Medications reviewed and adjusted accordingly: Yes Anticipated discharge: Home Within: Other - Inpatient Certification Based on my medical assessment, after consideration of the patient's comorbidities, presenting symptoms, or acuity I expect that the services needed warrant INPATIENT care.: Yes I certify that my determination is in accordance with my understanding of Medicare's requirements for reasonable and necessary INPATIENT services [42 CFR 412.3e].: Yes Medical Necessity: Significant Comorbidiites Make Outpatient Treatment Too Risky, Need Close Monitoring Due to Risk of Patient Decompensation Post Hospital Care: D/C Tape Sewer Documentation - Plan Summary Plan Summary: Restart the Coumadin 5 mg p.o. daily Check INR Start the Lasix 20 mg p.o. daily Check a Chem-7 and NT BNP Physical therapy Discussed with the patient's communications executive he will follow the Coumadin as usual if the patient is going home recheck on a Tuesday
[2018-11-16] MEDS ORDERED: WARFARIN SODIUM 2.5 MG TABLET PO ONE (19:30)
--- NOTE | 2018-11-16 20:05 | EKG REPORT ---
SEVERITY:- ABNORMAL ECG - ATRIAL FIBRILLATION, V-RATE 67-98 LOW VOLTAGE IN FRONTAL LEADS CONSIDER ANTEROSEPTAL INFARCT : Confirmed by: Robert Mas MD 16-Nov-2018 20:04:57
[2018-11-16] MEDS: ATORVASTATIN CALCIUM 20 MG TABLET PO SCH (22:56)
[2018-11-17] MEDS: CEFAZOLIN 1 GM/D5W RTU 1 GM/50 ML RTUPB IV SCH ×2 (06:58→07:03)
--- NOTE | 2018-11-17 08:43 | PDOC PROGRESS REPORT ---
Subjective Progress Note for:: 11/17/18 Subjective:: Patient very confused this AM, does not recognize the nurse, has poor recollection of events, she anxious and appears to be disoriented about situation and time. Reason For Visit: RIGHT BUTTOCK ABSCESS Physical Exam Vital Signs: Temp Pulse Resp BP Pulse Ox 97.8 F 83 16 107/53 L 97 11/17/18 03:05 11/17/18 03:05 11/17/18 03:05 11/17/18 03:05 11/17/18 03:05 Intake & Output 11/16/18 11/17/18 11/18/18 06:59 06:59 06:59 Intake Total 2190 3765 Output Total 1305 600 Balance 885 3165 Weight 49.9 kg 48.3 kg General appearance: PRESENT: no acute distress Skin exam: PRESENT: other - right butick: large surgical wound @ 8 cm in diameter, clean, no odor, serous drainage, granulating, no edema or erythema Results Laboratory Results: 11/16/18 05:48 11/16/18 15:29 11/16/18 15:29 Sodium 136.4 L Potassium 4.5 Chloride 97 L Carbon Dioxide 35 H Anion Gap 4 L BUN 15 Creatinine 0.74 Est GFR ( Amer) > 60 Est GFR (Non-Af Amer) > 60 Glucose 93 Calcium 9.7 11/15/18 09:30 Buttocks - Right Gram Stain - Final 11/16/18 15:29 NT-Pro-B Natriuret Pep 2360 H Impressions: Chest X-Ray 11/16/18 00:00 IMPRESSION: COPD with bibasilar effusions and basilar airspace disease either atelectasis or pneumonia. Left greater than right. This has developed since prior study. Assessment & Plan - Diagnosis (1) Wound of right buttock Is this a current diagnosis for this admission?: Yes - Plan Summary Plan Summary: A/ POD#2 after excision large chronic lesion R buttock, positive for SCC VSS Patient very confused this AM Wound Clean patient back on Coumadin P/ Patient can be discharged to home with family only today f/u w/ Dr. Montez in 2 weeks F/u w/ Dr. Reyna on Tuesday for PT/INR F/u w/ Dr. Bear next week Keflex 500 mg po qid x 5 days Home Health for wet-to-dry dressing change BID Continue all meds
--- NOTE | 2018-11-17 10:24 | DISCHARGE SUMMARY E ---
Discharge Summary NAME: SHEILA TOWNSEND : 1930 AGE: 88Y ADMITTED: 11/15/2018 DISCHARGED: 11/17/2018 FINAL DIAGNOSES: 1. Right buttock squamous cell carcinoma. 2. Dementia. 3. Congestive heart failure. 4. Atrial fibrillation. 5. Hypoxia. PROCEDURE: On November 15 the patient underwent wide excision of right pelvic wound. HOSPITAL COURSE: This is a demented 88-year-old female admitted because of a chronic lesion on the right buttocks. She underwent a wide excision on November 15. The pathology report of the lesion was significant for squamous cell carcinoma. Postoperatively, she was transferred to the floor. Her initial wound management was complicated by immediate postop bleeding which was controlled at the bedside with sutures. Following control of the bleeding the patient's postop care was unremarkable. Vital signs remained stable. She was able to tolerate p.o. well. On the day of discharge, the patient was suing oxygen via nasal cannula due to low O2 saturatikon (mid 80's). In addition, the patient presented with worsening of her mental status characterized by confusion, delirium, and disoriented by person, situation, and time. On the day of discharge the patient's vital signs were stable, she was afebrile. The right buttock wound was clean and granulating, no odor, no drainage, no erythema or edema. Due to her mental status worsening, the family was notified and they were willing to take the patient home with them and care for her. She was given a follow-up appointment with Dr. Dumont in 2 weeks, with Dr. Reyna the field crop i farmworker in the office next on Tuesday for INR/PT level, and follow up with Dr. Bear in 1 week. The patient can shower or undergo sponge bath; no bath allowed until the wound is fully closed. Resume all home medications. Keflex 500 mg p.o. 4 times a day for 5 days then stop. Activity as tolerated. Regular diet. Home Health is scheduled to see the patient twice a day for normal saline wet-to-dry dressing changes, right buttock. Because of the hypoxia the patient was recommended to have home oxygen regulated to keep the saturation more than 92% and then to wean her off to room air saturation equal or higher than 92%. DICTATING PHYSICIAN: SWETHA WILCOX M.D. [id number] PHY#: [id number] ID: [id number] JOB#: [id number] ACCT: [id number] cc:Karthik VITAL M.D. > [facility]
--- NOTE | 2018-11-17 12:32 | PDOC PROGRESS REPORT ---
Subjective Progress Note for:: 11/17/18 Subjective:: Patient is currently doing fair except some ongoing confusions overnight Patient is refused for the blood work this morning Patient is alert awake Patient wants to go home Patient still need oxygen's Patient seen by the natural history collections curator patient is all stable and suggest to follow outpatient INR on Tuesday Patient is denied any chest pain no short of breath Patient is walking the hallway without any problems Patient seen yesterday was all stable and basically wants to go home and today the same thing Reason For Visit: RIGHT BUTTOCK ABSCESS Physical Exam Vital Signs: Temp Pulse Resp BP Pulse Ox 97.5 F 80 17 121/82 92 11/17/18 09:00 11/17/18 09:00 11/17/18 09:00 11/17/18 09:00 11/17/18 09:00 Intake & Output 11/16/18 11/17/18 11/18/18 06:59 06:59 06:59 Intake Total 2190 3765 Output Total 1305 600 Balance 885 3165 Weight 49.9 kg 48.3 kg General appearance: PRESENT: no acute distress, well-developed, well-nourished Head exam: PRESENT: atraumatic, normocephalic Eye exam: PRESENT: conjunctiva pink, EOMI, PERRLA. ABSENT: scleral icterus Ear exam: PRESENT: normal external ear exam Mouth exam: PRESENT: moist, tongue midline Neck exam: PRESENT: full ROM. ABSENT: carotid bruit, JVD, lymphadenopathy, thyromegaly Respiratory exam: PRESENT: clear to auscultation jin Cardiovascular exam: PRESENT: RRR. ABSENT: diastolic murmur, rubs, systolic murmur Vascular exam: PRESENT: normal capillary refill GI/Abdominal exam: PRESENT: normal bowel sounds, soft. ABSENT: distended, g uarding, mass, organolmegaly, rebound, tenderness Rectal exam: PRESENT: deferred Neurological exam: PRESENT: alert, awake, oriented to person, oriented to place. ABSENT: motor sensory deficit Psychiatric exam: PRESENT: appropriate affect, normal mood. ABSENT: homicidal ideation, suicidal ideation Skin exam: PRESENT: dry, intact, warm. ABSENT: cyanosis, rash Results Laboratory Results: 11/16/18 05:48 11/16/18 15:29 11/16/18 15:29 Sodium 136.4 L Potassium 4.5 Chloride 97 L Carbon Dioxide 35 H Anion Gap 4 L BUN 15 Creatinine 0.74 Est GFR ( Amer) > 60 Est GFR (Non-Af Amer) > 60 Glucose 93 Calcium 9.7 11/15/18 09:30 Buttocks - Right Gram Stain - Final 11/16/18 15:29 NT-Pro-B Natriuret Pep 2360 H Impressions: Chest X-Ray 11/16/18 00:00 IMPRESSION: COPD with bibasilar effusions and basilar airspace disease either atelectasis or pneumonia. Left greater than right. This has developed since prior study. Assessment & Plan - Diagnosis (1) Diastolic congestive heart failure Qualifiers: Heart failure chronicity: chronic Qualified Code(s): I50.32 - Chronic diastolic (congestive) heart failure Is this a current diagnosis for this admission?: Yes Plan: Continues to Lasix 20 mg p.o. daily we will check the proBNP and Chem-7 and a chest x-ray (2) Hypertension Qualifiers: Hypertension type: essential hypertension Qualified Code(s): I10 - Essential (primary) hypertension Is this a current diagnosis for this admission?: Yes Plan: Is currently on a lower end currently hold the Coreg but I believe patient's tomorrow we will start the Coreg again as per his patient is asymptomatic (3) Hyperlipidemia Qualifiers: Hyperlipidemia type: unspecified Qualified Code(s): E78.5 - Hyperlipidemia, unspecified Is this a current diagnosis for this admission?: Yes (4) Arthritis Is this a current diagnosis for this admission?: Yes (5) Atrial fibrillation Qualifiers: Atrial fibrillation type: chronic Qualified Code(s): I48.2 - Chronic atrial fibrillation Is this a current diagnosis for this admission?: Yes Plan: Start the Coumadin and follow outpatient INR (6) Wound of right buttock Is this a current diagnosis for this admission?: Yes Plan: Follow with the surgery (7) Confusion Is this a current diagnosis for this admission?: Yes Plan: Most likely from the deliriums from the sundowning effect Clinically patient does not have any other signs or symptoms Patients probably need antibiotics which cover the patient's probably underlying atelectasis with the rule out any infections Discussed with the surgeons continues to Lasix antibiotics check the INR if the patient is going home Surgeon will talk to the patient's family today If there is no helps patients this to be stay in the hospital
[2018-11-17] MEDS: CYANOCOBALAMIN (VITAMIN B-12) 1,000 MCG TABLET PO SCH (12:34)
[2018-11-17] MEDS: CALCIUM CARBONATE 500 MG TAB.CHEW PO SCH (12:34)
[2018-11-17] MEDS: FUROSEMIDE 20 MG TABLET PO SCH (12:37)
[2018-11-17] MEDS: CARVEDILOL 6.25 MG TABLET PO SCH (12:37)
[2018-11-17] MEDS: DOCUSATE SODIUM 100 MG CAPSULE PO SCH (12:40)
[2018-11-17 13:27] LABS: ABSOLUTE EOSINOPHILS # (AUTO) 0.1 10^3/uL (0.0-0.6); ABSOLUTE NEUT (AUTO) 5.7 10^3/uL (1.7-8.2); BASOPHILS % (AUTO) 0.5 % (0-2); EOSINOPHILS % (AUTO) 0.7 % (0-6); HEMATOCRIT 34.8 % (36.0-47.0); HEMOGLOBIN 11.4 g/dL (12.0-15.5); LYMPHOCYTES % (AUTO) 12.9 % (13-45); MEAN CORPUSCULAR HEMOGLOBIN 28.4 pg (27.0-33.4); MEAN CORPUSCULAR HGB CONC 32.6 g/dL (32.0-36.0); MEAN CORPUSCULAR VOLUME 87 fl (80-97); MONOCYTES % (AUTO) 12.5 % (3-13); PLATELET COUNT 220 10^3/uL (150-450); RED CELL DISTRIBUTION WIDTH 15.1 % (11.5-14.0); SEGMENTED NEUTROPHILS % (AUTO) 73.4 % (42-78); TOTAL CELLS COUNTED % (AUTO) 100 %; WHITE BLOOD COUNT 7.8 10^3/uL (4.0-10.5)
[2018-11-17 13:28] VITALS: BP 108/69
[2018-11-17 13:36] LABS: INTERNATIONAL RATION (INR) 1.03; PROTHROMBIN TIME 14.1 SEC (11.4-15.4)
[2018-11-17 13:47] LABS: ANION GAP 7 (5-19); BLOOD UREA NITROGEN 16 mg/dL (7-20); CALCIUM 9.3 mg/dL (8.4-10.2); CARBON DIOXIDE 36 mmol/L (22-30); CHLORIDE 95 mmol/L (98-107); GLUCOSE 134 mg/dL (75-110); SODIUM 137.5 mmol/L (137-145)
[2018-11-17] MEDS ORDERED: WARFARIN SODIUM 5 MG TABLET PO SCH (18:00)
[2018-11-20] MEDS ORDERED: WARFARIN SODIUM 2.5 MG TABLET PO SCH (18:00)
== END 2018-11-17 13:56 | disposition home or self-care (01) ==
LOC: OROUT 07:00 → EDSTATUS 09:00 → 2N 10:21 → OROUT 11:47
PROVIDERS: ADMIT Surgery; ATTEND Surgery
PROC: 0Y300ZZ Control Bleeding in Right Buttock, Open Approach (ICD-10-PCS; 2018-11-15)
PROC: 0KBN0ZX Excision of Right Hip Muscle, Open Approach, Diagnostic (ICD-10-PCS; principal; 2018-11-15 09:00)
DX: C44.529 Squamous cell carcinoma of skin of other part of trunk (principal); F03.90 Unspecified dementia, unspecified severity, without behavioral disturbance, psychotic disturbance, mood disturbance, and anxiety; F05 Delirium due to known physiological condition; I11.0 Hypertensive heart disease with heart failure; I50.32 Chronic diastolic (congestive) heart failure; R09.02 Hypoxemia; I48.2 Chronic atrial fibrillation; I97.620 Postprocedural hemorrhage of a circulatory system organ or structure following other procedure; Y84.8 Other medical procedures as the cause of abnormal reaction of the patient, or of later complication, without mention of misadventure at the time of the procedure; E78.5 Hyperlipidemia, unspecified; M19.90 Unspecified osteoarthritis, unspecified site; M81.0 Age-related osteoporosis without current pathological fracture; Z79.01 Long term (current) use of anticoagulants; Z79.899 Other long term (current) drug therapy; Z98.890 Other specified postprocedural states
CPT/HCPCS: 36415 ×3; 87070; 87205; 84132; 85025 ×2; 85027; 85610 ×3; 85730; 87075; 87077; 80048 ×2; 87186; 83880; 71046; 71045; 93005 ×2; 94799; 93010 ×2; 11606; 13101; 35226; G0378 ×3; A9270 ×14; J0690 ×2; J1100; J3010; J3490 ×4; J2405; J7120; J2704; 300; G0379; J1170; J2250

== ENCOUNTER 2018-12-27 12:33 | Outpatient (CLI) | payer MEDICARE, BC ==
[~2018-12-27 12:33] MED LIST changes: -CEFAZOLIN 1 GM/D5W RTU 1 GM/50 ML RTUPB IV ONE; +CEMIPLIMAB RWLC IV PRN; +NORMAL SALINE 250 ML IV PRN; +NORMAL SALINE IV PRN
[2018-12-27 13:13] VITALS: BP 108/62
== END 2018-12-27 14:07 | disposition home or self-care (01) ==
LOC: II 12:33 → 5TH 13:58 → II 14:07
PROVIDERS: ATTEND Internal Medicine
PROC: 3E0330M Introduction of Antineoplastic, Monoclonal Antibody, into Peripheral Vein, Percutaneous Approach (ICD-10-PCS; principal; 2018-12-27)
DX: Z51.11 Encounter for antineoplastic chemotherapy (principal); C44.529 Squamous cell carcinoma of skin of other part of trunk
CPT/HCPCS: 96413; J7050; C9044

== ENCOUNTER → 2019-01-01 | Outpatient (CLI) | payer MEDICARE, BC ==
--- NOTE | 2019-01-01 14:56 | RADIOLOGY REPORT (SQ) ---
EXAM DESCRIPTION: CT ABD/PELVIS WITH IV ONLY COMPLETED DATE/TIME: 01/01/2019 2:41 pm REASON FOR STUDY: C44.92 SQUAMOUS CELL CARCINOMA OF SKIN, UNSPECIFIED C44.92 SQUAMOUS CELL CARCINOM A OF SKIN, UNSPECIFIED C44.529 SQUAMOUS CELL CARCINOMA OF SKIN OF OTHER PART OF TUNDE COMPARISON: None. TECHNIQUE: CT scan of the abdomen and pelvis performed using helical scanning technique with dynamic intravenous contrast injection. No oral contrast. Images reviewed with lung, soft tissue, and bone windows. Reconstructed coronal and sagittal MPR images reviewed. Delayed images for evaluation of the urinary system also acquired. All images stored on PACS. All CT scanners at this facility use dose modulation, iterative reconstruction, and/or weight based d osing when appropriate to reduce radiation dose to as low as reasonably achievable (ALARA). [facility]: Dose Right [facility]: CareDose [facility]: Dose Right [facility]: Teradose 4D [facility]: [employer] CONTRAST TYPE AND DOSE: See separate report of the same date. RENAL FUNCTION: See separate report. RADIATION DOSE: CT Rad equipment meets quality standard of care and radiation dose reduction techniq ues were employed. CTDIvol: 4.4 - 6.3 mGy. DLP: 618 mGy-cm.. LIMITATIONS: None. FINDINGS: LOWER CHEST: See separate report of the CT of the chest. LIVER: Normal size. No masses. No dilated ducts. SPLEEN: Normal size. No focal lesions. PANCREAS: No masses. No significant calcifications. No adjacent inflammation or peripancreatic fluid collections. Pancreatic duct not dilated. GALLBLADDER: No identified stones by CT criteria. No inflammatory changes to suggest cholecystitis. ADRENAL GLANDS: No significant masses or asymmetry. RIGHT KIDNEY AND URETER: No solid masses. No significant calcifications. No hydronephrosis or hyd roureter. LEFT KIDNEY AND URETER: No solid masses. No significant calcifications. No hydronephrosis or hydr oureter. AORTA AND VESSELS: No aneurysm. RETROPERITONEUM: No retroperitoneal adenopathy, hemorrhage or masses. BOWEL AND PERITONEAL CAVITY: Diffuse diverticulosis. No masses or inflammatory changes. No free flui d or peritoneal masses. APPENDIX: Not visualized. PELVIS: No mass. No free fluid. Normal bladder. ABDOMINAL WALL: No masses. No hernias. BONES: Nothing acute. Grade 1 spondylolisthesis and spondylolysis L5-S1 OTHER: Soft tissue masses in the right gluteal region which is a known finding. IMPRESSION: No evidence of metastatic disease. TECHNICAL DOCUMENTATION: JOB ID: [id number] Quality ID # [id number]: Final reports with documentation of one or more dose reduction techniques (e.g., Au tomated exposure control, adjustment of the mA and/or kV according to patient size, use of iterative reconstruction technique) 2010 [employer]- All Rights Reserved Reading location - IP/workstation name: [email or web address]
--- NOTE | 2019-01-01 14:57 | RADIOLOGY REPORT (SQ) ---
EXAM DESCRIPTION: CT CHEST WITH COMPLETED DATE/TIME: 01/01/2019 2:41 pm REASON FOR STUDY: C44.92 SQUAMOUS CELL CARCINOMA OF SKIN, UNSPECIFIED C44.92 SQUAMOUS CELL CARCINOM A OF SKIN, UNSPECIFIED C44.529 SQUAMOUS CELL CARCINOMA OF SKIN OF OTHER PART OF TUNDE COMPARISON: None. TECHNIQUE: CT scan of the chest performed using helical scanning technique with dynamic intravenous contrast injection. Images reviewed with lung, soft tissue and bone windows. Reconstructed coronal and sagittal MPR and MIP images reviewed. All images stored on PACS. All CT scanners at this facility use dose modulation, iterative reconstruction, and/or weight based d osing when appropriate to reduce radiation dose to as low as reasonably achievable (ALARA). [facility]: Dose Right [facility]: CareDose [facility]: Dose Right [facility]: Teradose 4D [facility]: [employer] CONTRAST TYPE AND DOSE: Not available. RENAL FUNCTION: GFR > 60. RADIATION DOSE: . LIMITATIONS: Patient movement. FINDINGS: LUNGS AND PLEURA: No opacities, nodules, masses. No pneumothorax. No effusions. HILAR AND MEDIASTINAL STRUCTURES: No identified masses or abnormal nodes. HEART AND VASCULAR STRUCTURES: No aneurysm or dissection. No central pulmonary emboli. No pericardi al effusion. HARDWARE: None in the chest. UPPER ABDOMEN: See separate report of the CT of the abdomen. THYROID AND OTHER SOFT TISSUES: No masses. No adenopathy. BONES: No significant finding. OTHER: No other significant finding. IMPRESSION: No evidence of metastatic disease. TECHNICAL DOCUMENTATION: JOB ID: [id number] Quality ID # [id number]: Final reports with documentation of one or more dose reduction techniques (e.g., Au tomated exposure control, adjustment of the mA and/or kV according to patient size, use of iterative reconstruction technique) 2010 [employer]- All Rights Reserved Reading location - IP/workstation name: [email or web address]
== END ==
LOC: RAD 13:51
PROVIDERS: ATTEND Internal Medicine
DX: C44.529 Squamous cell carcinoma of skin of other part of trunk (principal); C44.92 Squamous cell carcinoma of skin, unspecified
CPT/HCPCS: 71260; 74177

== ENCOUNTER 2019-01-17 12:58 | Outpatient (CLI) | payer MEDICARE, BC ==
[2019-01-17 13:04] VITALS: BP 112/54
== END 2019-01-17 14:16 | disposition home or self-care (01) ==
LOC: II 12:58 → 5TH 13:04 → II 14:16
PROVIDERS: ATTEND Internal Medicine
PROC: 3E0330M Introduction of Antineoplastic, Monoclonal Antibody, into Peripheral Vein, Percutaneous Approach (ICD-10-PCS; principal; 2019-01-17)
DX: Z51.11 Encounter for antineoplastic chemotherapy (principal); C44.529 Squamous cell carcinoma of skin of other part of trunk
CPT/HCPCS: 96413; J7050; C9044

== ENCOUNTER → 2019-01-17 | Outpatient (CLI) | payer MEDICARE, BC ==
--- NOTE | 2019-01-17 15:53 | RADIOLOGY REPORT (SQ) ---
EXAM DESCRIPTION: MRI PELVIS COMBO COMPLETED DATE/TIME: 01/17/2019 3:07 pm REASON FOR STUDY: SQUAMOUS CELL CANCER OF SKIN OF BUTTOCK (C44.529) C44.529 SQUAMOUS CELL CARCINOMA OF SKIN OF OTHER PART OF TUNDE COMPARISON: None. TECHNIQUE: Multiplanar imaging of the pelvis to include T1-weighted, postcontrast T1-weighted, and T 2-weighted images. CONTRAST TYPE AND DOSE: 10 mL [employer]. RENAL FUNCTION: Not indicated. ACR Type II contrast agent associated with few, if any, unconfounded cases of NSF LIMITATIONS: None. FINDINGS: BONE MARROW: Normal. SOFT TISSUES: Anatomy of interest is the right gluteal region. There are multiple subcutaneous alexsander s, the largest 4.3 x 3.1 cm. Masses abut the gluteal musculature but no definite invasion. No regio nal adenopathy. OTHER: No other significant finding. IMPRESSION: Multiple dermatologic masses consistent with clinical history. Deepest lesion abuts but does not invade the gluteal muscles. TECHNICAL DOCUMENTATION: JOB ID: [id number] [employer]- All Rights Reserved Reading location - IP/workstation name: [email or web address]
== END ==
LOC: RAD 14:17
PROVIDERS: ATTEND Surgery
DX: C44.529 Squamous cell carcinoma of skin of other part of trunk (principal)
CPT/HCPCS: 72197; A9576